=== PATIENT | male | born 1985 | race American Indian/Alaskan Native ===

== ENCOUNTER 2018-01-03 19:57 | Emergency (ER) | payer MEDICAID ==
--- NOTE | 2018-01-04 00:27 | XRay Report ---
FINAL REPORT PROCEDURE: XR CHEST ROUTINE 2V TECHNIQUE: PA and lateral chest radiographs were obtained. CPT 47639 HISTORY: sob COMPARISON: No prior studies are available for comparison. FINDINGS: Heart: Normal. Mediastinum/Vessels: Normal. Lungs/Pleural space: Normal. Bony thorax: No acute osseous abnormality. Other: IMPRESSION: Normal examination.
--- NOTE | 2018-01-04 01:11 | Emergency Department Report ---
- General Chief Complaint: Upper Respiratory Infection Stated Complaint: DIFF BREATHING Time Seen by Provider: 01/03/18 23:20 Source: patient, EMS Mode of arrival: Ambulatory Limitations: No Limitations - History of Present Illness Initial Comments: 32-year-old -[place] male presents to emergency department complaining of a four-day history of worsening cough, congestion and wheezing. Reports positive sputum production MD Complaint: cough, rhinorrhea, nasal congestion -: Gradual (4 days) Severity: moderate Quality: burning Consistency: constant Associated Symptoms: rhinorrhea, nasal congestion, sore throat, cough, shortness of breath. denies: chills, myalgias, diaphoresis, diarrhea, dysuria, confusion, weight loss, epistaxis, ear pain - Related Data Previous Rx's Medication Instructions Recorded Last Taken Type Olanzapine [ZyPREXA] 20 mg PO QHS #10 tablet 09/30/15 Unknown Rx ALBUTEROL Inhaler (OR & NICU) 2 puff IH QID PRN #1 inhalation 01/04/18 Unknown Rx [ProAir HFA Inhaler] Brompheniramine/Pseudoephed/Dm 5 ml PO Q6H PRN #240 syrup 01/04/18 Unknown Rx [Onxbisszns-Prcuvdjfdiv-Io Syr] predniSONE [Deltasone] 50 mg PO QDAY #5 tab 01/04/18 Unknown Rx Allergies Allergy/AdvReac Type Severity Reaction Status Date / Time No Known Allergies Allergy Verified 11/29/13 21:09 ED Review of Systems ROS: Stated complaint: DIFF BREATHING Other details as noted in HPI Constitutional: denies: chills, fever Eyes: denies: eye pain, eye discharge, vision change ENT: denies: ear pain, throat pain Respiratory: wheezing. denies: cough, shortness of breath Cardiovascular: denies: chest pain, palpitations Endocrine: no symptoms reported Gastrointestinal: denies: abdominal pain, nausea, diarrhea Genitourinary: denies: urgency, dysuria Musculoskeletal: denies: back pain, joint swelling, arthralgia Skin: denies: rash, lesions Neurological: denies: headache, weakness, paresthesias Psychiatric: denies: anxiety, depression Hematological/Lymphatic: denies: easy bleeding, easy bruising ED Past Medical Hx - Past Medical History Previous Medical History?: Yes Hx Psychiatric Treatment: Yes (bipolar schizophrenia) Hx Asthma: Yes - Surgical History Past Surgical History?: No - Social History Smoking Status: Current Every Day Smoker Substance Use Type: Alcohol - Medications Home Medications: Home Medications Medication Instructions Recorded Confirmed Last Taken Type Olanzapine [ZyPREXA] 20 mg PO QHS #10 tablet 09/30/15 10/18/15 Unknown Rx ALBUTEROL Inhaler (OR & NICU) 2 puff IH QID PRN #1 inhalation 01/04/18 Unknown Rx [ProAir HFA Inhaler] Brompheniramine/Pseudoephed/Dm 5 ml PO Q6H PRN #240 syrup 01/04/18 Unknown Rx [Qslqmjjehk-Yhkajtcdsbz-Mf Syr] predniSONE [Deltasone] 50 mg PO QDAY #5 tab 01/04/18 Unknown Rx ED Physical Exam - General Limitations: No Limitations General appearance: alert, in no apparent distress - Head Head exam: Present: atraumatic, normocephalic - Eye Eye exam: Present: normal appearance - ENT ENT exam: Present: mucous membranes moist, other (nasal congestion. His right midline. Tongue and uvula midline) - Neck Neck exam: Present: normal inspection - Respiratory Respiratory exam: Present: normal lung sounds bilaterally, wheezes, rhonchi. Absent: respiratory distress - Cardiovascular Cardiovascular Exam: Present: regular rate, normal rhythm. Absent: systolic murmur, diastolic murmur, rubs, gallop - GI/Abdominal GI/Abdominal exam: Present: soft, normal bowel sounds - Rectal Rectal exam: Present: deferred - Extremities Exam Extremities exam: Present: normal inspection - Back Exam Back exam: Present: normal inspection. Absent: paraspinal tenderness, vertebral tenderness - Neurological Exam Neurological exam: Present: alert, oriented X3, CN II-XII intact, normal gait - Psychiatric Psychiatric exam: Present: normal affect, normal mood - Skin Skin exam: Present: warm, dry, intact, normal color. Absent: rash ED Course Vital Signs 01/03/18 20:17 Temperature 98.6 F Pulse Rate 91 H Respiratory 18 Rate Blood Pressure 123/78 O2 Sat by Pulse 96 Oximetry ED Medical Decision Making - Radiology Data Radiology results: report reviewed - Medical Decision Making Improvement in breathing. Post aerosol treatment Critical care attestation.: If time is entered above; I have spent that time in minutes in the direct care of this critically ill patient, excluding procedure time. ED Disposition Clinical Impression: Wheezing, Cough Disposition: DC-01 TO HOME OR SELFCARE Is pt being admited?: No Does the pt Need Aspirin: No Condition: Stable Instructions: Reactive Airways Disease (ED), Cold Symptoms (ED) Prescriptions: ALBUTEROL Inhaler (OR & NICU) [ProAir HFA Inhaler] 2 puff IH QID PRN #1 inhalation PRN Reason: Shortness Of Breath Brompheniramine/Pseudoephed/Dm [Obwhagvacp-Gtytbianyts-Gw Syr] 5 ml PO Q6H PRN # 240 syrup PRN Reason: Cough predniSONE [Deltasone] 50 mg PO QDAY #5 tab Referrals: [facility] [Provider Group] - 3-5 Days
[2018-01-04] MEDS ORDERED: DUONEB *Not for PRN Use IH ONE (01:44)
[2018-01-04 02:07] VITALS: BP 128/75
== END 2018-01-04 02:06 | disposition home or self-care (01) ==
LOC: ED 19:57
DX: R05 Cough (principal); R06.02 Shortness of breath; R09.81 Nasal congestion; J45.909 Unspecified asthma, uncomplicated; F17.200 Nicotine dependence, unspecified, uncomplicated; F20.9 Schizophrenia, unspecified; F31.9 Bipolar disorder, unspecified
CPT/HCPCS: 71046; 99283

== ENCOUNTER 2021-10-06 20:13 | Emergency (ER) | payer MEDICAID ==
[2021-10-06 22:30] VITALS: BP 154/92
== END 2021-10-07 07:00 | disposition left against medical advice (07) ==
LOC: ED 20:13
DX: R53.1 Weakness (principal); Z53.21 Procedure and treatment not carried out due to patient leaving prior to being seen by health care provider